=== PATIENT | female | born 1990 | race American Indian/Alaskan Native ===

== ENCOUNTER 2019-02-20 02:02 | Inpatient (IN) | payer MEDICAID ==
[2019-02-20] MEDS ORDERED: AMPICILLIN/NS 2 GM/100 ML 2 GM/100 ML BAG IV ONE (02:22)
[2019-02-20] MEDS ORDERED: BRETHINE SUB-Q PRN (02:22)
[2019-02-20] MEDS ORDERED: XYLOCAINE 2% INFILTRATI ONE (02:22)
[2019-02-20] MEDS ORDERED: SUBLIMAZE IV PRN (02:22)
[2019-02-20] MEDS ORDERED: MINERAL OIL PO PRN (02:22)
[2019-02-20] MEDS ORDERED: BRETHINE IVP PRN (02:22)
[2019-02-20] MEDS ORDERED: STADOL IV PRN (02:22)
[2019-02-20] MEDS ORDERED: LACTATED RINGERS 1,000 ML IV SCH (03:00)
[2019-02-20] MEDS ORDERED: PITOCin/NS 20 UNIT/1000ML DRIP 20 UNITS/1,000 ML BAG IV SCH (03:00)
--- NOTE | 2019-02-20 04:31 | History and Physical Report ---
History of Present Illness Date of examination: 02/20/19 Date of admission: 02/20/19 02:32 Chief complaint: Leakage of fluid History of present illness: 28-year-old 001 at 40+1 weeks who presents to labor and delivery triage with the complaint of leakage of fluid. The patient was found to have meconium- stained fluid upon examination and was dilated 5 cm at presentation. Her records are not available for review at this time. Past History Past Medical History: other (sickle cell trait) Past Surgical History: no surgical history Social history: single - Obstetrical History Expected Date of Delivery: 02/19/19 Actual Gestation: 40 Week(s) 1 Day(s) : 2 Para: 1 Hx # Term Pregnancies: 1 Number of Pregnancies: 0 Spontaneous Abortions: 0 Induced : 0 Number of Living Children: 1 Medications and Allergies Allergies Allergy/AdvReac Type Severity Reaction Status Date / Time No Known Allergies Allergy Verified 02/20/19 02:20 Active Meds: Active Medications Butorphanol Tartrate (Stadol) 2 mg IV Q2H PRN PRN Reason: Pain , Severe (7-10) Ephedrine Sulfate (Ephedrine Sulfate) 10 mg IV Q2M PRN PRN Reason: Hypotension Fentanyl (Sublimaze) 100 mcg IV Q2H PRN PRN Reason: Labor Pain Last Admin: 02/20/19 03:20 Dose: 100 mcg Documented by: Oxytocin/Sodium Chloride (Pitocin/Ns 20 Unit/1000ml Drip) 20 units in 1,000 mls @ 125 mls/hr IV DIRECT RAQUEL Lactated Ringer's (Lactated Ringers) 1,000 mls @ 125 mls/hr IV DIRECT RAQUEL Ampicillin Sodium (Ampicillin/Ns 1 Gm/50 Ml) 1 gm in 50 mls @ 100 mls/hr IV Q4HR RAQUEL; Protocol Mineral Oil (Mineral Oil) 30 ml PO QHS PRN PRN Reason: Constipation Terbutaline Sulfate (Brethine) 0.25 mg SUB-Q ONCE PRN PRN Reason: Hyperstimulation/Hypertonicity Terbutaline Sulfate (Brethine) 0.25 mg IVP ONCE PRN PRN Reason: Hyperstimulation/Hypertonicity Review of Systems All systems: negative Genitourinary: leakage of fluid, contractions - Vital Signs Vital signs: Vital Signs Pulse Pulse Ox 87 98 02/20/19 02:13 02/20/19 02:13 Temp Pulse Resp BP Pulse Ox 86 18 166/92 97 02/20/19 02:23 02/20/19 03:20 02/20/19 02:19 02/20/19 02:23 - Physical Exam Breasts: Positive: deferred Cardiovascular: Regular rate Lungs: Positive: Clear to auscultation Results All other labs normal. Assessment and Plan - Patient Problems (1) Spontaneous rupture of amniotic membranes Current Visit: Yes Status: Acute Plan to address problem: Admit to labor and delivery Initiate IV antibiotics (2) Thick meconium stained amniotic fluid Current Visit: Yes Status: Acute (3) Active labor at term Current Visit: Yes Status: Acute
--- NOTE | 2019-02-20 04:33 | Procedure Note ---
OB Delivery Note - Delivery Date of Delivery: 02/20/19 Surgeon: NOLAN PARADA Estimated blood loss: other (350 mL) - Vaginal Delivery presentation: vertex Intrapartum events: meconium Delivery monitor: external FHT Route of delivery: Delivery placenta: spontaneous Delivery cord: 3 umbilical vessels Episiotomy: none Delivery laceration: 1st degree Anesthesia: none Delivery comments: The patient progressed to complete complete +1 and pushed to deliver a liveborn male with Apgars of 8 and 9 weight 8 lbs. 6 oz. After delivery of the head and shoulders, the cord was clamped and cut and the was taken immediately to the warmer for further evaluation by the pediatric staff. The placenta delivered spontaneously intact with a three-vessel cord. The patient sustained a small first-degree midline laceration that was left on repair. Estimated blood loss of 350 mL - A at 1 minute: 8 at 5 minutes: 9 Infant Gender: Male (weight 8 lbs. 6 oz.)
[2019-02-20] MEDS ORDERED: ZOFRAN IV PRN (04:34)
[2019-02-20] MEDS ORDERED: TYLENOL PO PRN (04:34)
[2019-02-20] MEDS ORDERED: BENADRYL PO PRN (04:34)
[2019-02-20] MEDS ORDERED: PHENERGAN PR PRN (04:34)
[2019-02-20] MEDS ORDERED: LANSINOH TP PRN (04:34)
[2019-02-20] MEDS ORDERED: MILK OF MAGNESIA PO PRN (04:34)
[2019-02-20] MEDS ORDERED: DULCOLAX PR PRN (04:34)
[2019-02-20] MEDS ORDERED: PHENERGAN PO PRN (04:34)
[2019-02-20] MEDS ORDERED: TUCKS PAD TP PRN (04:34)
[2019-02-20] MEDS ORDERED: NORCO 5/325 PO PRN (04:34)
[2019-02-20] MEDS ORDERED: SODIUM CHLORIDE FLUSH SYRINGE 10 ML IV NR (05:00)
[2019-02-20 05:36] LABS: Hematocrit 37.1 % (30.3-42.9); Hemoglobin 13.4 gm/dl (10.1-14.3)
[2019-02-20 06:09] LABS: Hepatitis C Virus Antibody Non-Reactive (NonReactive)
[2019-02-20 06:22] LABS: Alanine Aminotransferase 17 units/L (7-56); Uric Acid 3.4 mg/dL (3.5-7.6)
[2019-02-20] MEDS ORDERED: AMPICILLIN/NS 1 GM/50 ML 1 GM/50 ML BAG IV SCH (06:23)
[2019-02-20] MEDS: IBUPROFEN PO SCH ×2 (11:33→18:20)
[2019-02-20 20:19] LABS: Hematocrit 31.9 % (30.3-42.9); Hemoglobin 11.5 gm/dl (10.1-14.3)
[2019-02-20 23:37] LABS: Bacteria,Urine 3+ /HPF (Negative); Bilirubin,Urine NEG (Negative); Blood,Urine LG (Negative); Color,Urine Red (Yellow); Urobilinogen,Urine < 2.0 mg/dL (<2.0)
[2019-02-20 23:38] LABS: RBC,Urine > 182.0 /HPF (0.0-6.0)
[2019-02-21] MEDS: IBUPROFEN PO SCH ×5 (00:50→23:00)
--- NOTE | 2019-02-21 11:24 | Progress Note ---
Assessment and Plan - Patient Problems (1) Spontaneous rupture of amniotic membranes Current Visit: Yes Status: Acute Plan to address problem: patient doing well discharge home (2) Thick meconium stained amniotic fluid Current Visit: Yes Status: Acute (3) Active labor at term Current Visit: Yes Status: Acute Subjective - Subjective Date of service: 02/21/19 Interval history: Patient without complaints. Lochia decreasing. Pain well controlled Patient reports: appetite normal, voiding normally, pain well controlled : doing well Objective - Vital Signs Latest vital signs: Vital Signs Temp Pulse Resp BP BP Pulse Ox 02/21/19 09:18 97.6 F 73 22 134/86 99 02/21/19 06:26 18 02/20/19 16:40 97.7 F 88 18 153/78 Intake and Output 02/20/19 02/21/19 02/21/19 22:59 06:59 14:59 Intake Total 360 240 Output Total 320 Balance 40 240 Intake: Oral 360 240 Output: Urine 320 Void 320 Other: Total, Intake Amount 360 240 Total, Output Amount 320 # Voids Void 1 - Exam Uterus: Present: normal, firm - Labs Labs: Abnormal lab results 02/20/19 Range/Units 22:00 Urine WBC (Auto) 25.0 H (0.0-6.0) /HPF
--- NOTE | 2019-02-21 11:25 | Discharge Summary ---
Providers - Providers Date of Admission: 02/20/19 02:32 Date of discharge: 02/21/19 Attending physician: KAVEH CARPIO Primary care physician: KAVEH CARPIO Hospitalization Reason for admission: active labor, rupture of membranes Delivery: Discharge diagnosis: IUP at term delivered Hospital course: Patient admitted in active labor. Had a . uneventful Condition at discharge: Good Disposition: DC- TO HOME OR SELFCARE - Discharge Diagnoses (1) Spontaneous rupture of amniotic membranes Status: Acute (2) Thick meconium stained amniotic fluid Status: Acute (3) Active labor at term Status: Acute Plan - Discharge Medications Prescriptions: Ibuprofen [Motrin] 800 mg PO Q8HR PRN #60 tablet PRN Reason: Pain, Mild (1-3) HYDROcodone/APAP 5-325 [[place] 5/325] 1 each PO Q6HR PRN #20 tablet PRN Reason: Pain - Provider Discharge Summary Activity: no sex for 6 weeks, no heavy lifting 4 weeks, no strenuous exercise Diet: routine Instructions: routine Additional instructions: [] Smoking cessation referral if applicable(refer to patient education folder for contact #) [] Refer to [facility] Booklet Call your doctor immediately for: * Fever > 100.5 * Heavy vaginal bleeding ( >1 pad per hour) * Severe persistent headache * Shortness of breath * Reddened, hot, painful area to leg or breast * schedule followup in 4 weeks - Follow up plan
[2019-02-22] MEDS: IBUPROFEN PO SCH ×5 (05:02→23:47)
[2019-02-22] MEDS ORDERED: BOOSTRIX IM ONE (06:00)
[2019-02-22] MEDS ORDERED: MAGNESIUM SULFATE 4GM/100ML 4 GM/100 ML BAG IV ONE (11:22)
[2019-02-22] MEDS ORDERED: MAGNESIUM SULFATE 40GM/1000ML 40 GM/1,000 ML BAG IV SCH (12:00)
[2019-02-22] MEDS: PROCARDIA XL PO SCH (12:08)
[2019-02-23] MEDS: IBUPROFEN PO SCH ×2 (05:16→12:15)
--- NOTE | 2019-02-23 08:31 | Progress Note ---
Assessment and Plan PPD 2 s/p . doing well. Pt has no complaints of headache or other pains. Will plan for discharge on today with follow up in office in 1 week for blood pressure check. Subjective - Subjective Date of service: 02/23/19 Interval history: Pt had elevated blood pressures. Called by nursing staff due to mildly elevated blood pressures. Will cancel today's discharge and begin antihypertensives. Patient reports: appetite normal, voiding normally, pain well controlled, ambulating normally : doing well Objective - Vital Signs Latest vital signs: Vital Signs Temp Pulse Resp BP BP Pulse Ox 02/23/19 02:20 98.2 F 87 20 138/83 100 02/22/19 17:00 98.3 F 86 20 146/81 98 02/22/19 08:57 98.1 F 80 20 142/90 97 Intake and Output 02/22/19 02/23/19 02/23/19 22:59 06:59 14:59 Intake Total 240 Balance 240 Intake: Oral 240 Other: Total, Intake Amount 240 # Voids Void 1 - Exam Breasts: Present: deferred Cardiovascular: Present: Regular rate, Normal S1, Normal S2 Lungs: Present: Clear to auscultation, Normal air movement Abdomen: Present: normal appearance, soft Uterus: Present: normal, firm
--- NOTE | 2019-02-23 08:33 | Discharge Summary ---
Providers - Providers Date of Admission: 02/20/19 02:32 Date of discharge: 02/23/19 Attending physician: KAVEH CARPIO Primary care physician: KAVEH CARPIO Hospitalization Reason for admission: active labor, rupture of membranes Delivery: Episiotomy: none Laceration: none Other procedures: none complications: none Discharge diagnosis: IUP at term delivered baby: male Condition at discharge: Good Disposition: -01 TO HOME OR SELFCARE Plan - Discharge Medications Prescriptions: Ibuprofen [Motrin] 800 mg PO Q8HR PRN #60 tablet PRN Reason: Pain, Mild (1-3) HYDROcodone/APAP 5-325 [[place] 5/325] 1 each PO Q6HR PRN #20 tablet PRN Reason: Pain NIFEdipine XL [Procardia Xl] 60 mg PO QDAY #30 tablet - Provider Discharge Summary Activity: routine, no sex for 6 weeks, no heavy lifting 4 weeks, no strenuous exercise Diet: routine Instructions: routine Additional instructions: [] Smoking cessation referral if applicable(refer to patient education folder for contact #) [] Refer to [facility] Booklet Call your doctor immediately for: * Fever > 100.5 * Heavy vaginal bleeding ( >1 pad per hour) * Severe persistent headache * Shortness of breath * Reddened, hot, painful area to leg or breast * Drainage or odor from incision. * Keep incision clean and dry at all times and follow doctor's instructions regarding bathing/showering - Follow up plan Follow up: KAVEH CARPIO MD [Primary Care Provider] - 7 Days Forms: [facility] Discharge Summary, Discharge Signature Page
[2019-02-23] MEDS: PROCARDIA XL PO SCH (10:08)
[2019-02-23 16:49] VITALS: BP 140/84
== END 2019-02-23 16:55 | disposition home or self-care (01) | DRG 775 ==
LOC: TRG 02:02 → LD 02:32 → OB 06:50
PROVIDERS: ADMIT Obstetrics & Gynecology; ATTEND Obstetrics & Gynecology
PROC: 10E0XZZ Delivery of Products of Conception, External Approach (ICD-10-PCS; principal; 2019-02-20)
PROC: 0HQ9XZZ Repair Perineum Skin, External Approach (ICD-10-PCS; 2019-02-20)
PROC: 3E0234Z Introduction of Serum, Toxoid and Vaccine into Muscle, Percutaneous Approach (ICD-10-PCS; 2019-02-22)
DX: O77.0 Labor and delivery complicated by meconium in amniotic fluid (principal); Z37.0 Single live birth; Z23 Encounter for immunization; Z3A.40 40 weeks gestation of pregnancy; O70.0 First degree perineal laceration during delivery
CPT/HCPCS: 36415; 81001; 82565; 83615; 84450; 84460; 84550; 85014; 85018; 86592; 86706; 86762; 86803; 86850; 86900; 86901; 87086; 87806; 90471; G0378; J2590; J3010; J7120